=== PATIENT | male | born 1955 | race Caucasian/White ===

== ENCOUNTER → 2023-07-30 06:37 | Day surgery (SDC) | payer MEDICARE, OTHER, SELFPAY | LOC: GI 06:37 | PROVIDERS: ATTENDING PHYSICIAN Specialist | DX: Z12.11 Encounter for screening for malignant neoplasm of colon (principal); D12.2 Benign neoplasm of ascending colon; D12.3 Benign neoplasm of transverse colon; K57.30 Diverticulosis of large intestine without perforation or abscess without bleeding; K20.90 Esophagitis, unspecified without bleeding; K22.89 Other specified disease of esophagus; K31.7 Polyp of stomach and duodenum; K31.89 Other diseases of stomach and duodenum; R12 Heartburn; Z86.010 Personal history of colon polyps | CPT/HCPCS: 43251; 45385; 43239; 88305 ==

== ENCOUNTER 2023-10-16 06:13 | Day surgery (SDC) | payer MEDICARE, OTHER, SELFPAY ==
[2023-10-16 09:46] VITALS: BMI 25.1
[2023-10-16 09:47] VITALS: BP 140/85
[2023-10-16 11:50] VITALS: BP 128/93
[2023-10-16 12:05] VITALS: BP 132/77
[2023-10-16 12:20] VITALS: BP 134/83
== END 2023-10-16 12:30 | disposition home or self-care (01) ==
LOC: GI 06:13
PROVIDERS: ATTENDING PHYSICIAN Internal Medicine Gastroenterology
DX: D12.2 Benign neoplasm of ascending colon (principal); D12.3 Benign neoplasm of transverse colon; K64.0 First degree hemorrhoids
CPT/HCPCS: 45390; 45385; 88305

== ENCOUNTER 2024-02-20 10:31 | Emergency (ER) | payer MEDICARE, OTHER, SELFPAY ==
[2024-02-20 10:37] VITALS: BP 173/84
[2024-02-20 11:21] VITALS: BMI 26.0
[2024-02-20 11:27] VITALS: BP 163/73
[2024-02-20 11:59] LABS: % Basophils 0.7 % (0-2); % Eosinophils 3.5 % (0-6); % Immature Granulocytes 0.4 % (0-0.5); % Lymphocytes 21.4 % (20.5-51.1); % Monocytes 10.4 % (1.7-9.3); % Neutrophils 63.6 % (42.2-75.2); Absolute Basophils 0.1 10^3/uL (0-0.2); Absolute Eosinophils 0.3 10^3/uL (0-0.7); Absolute Lymphocytes 1.8 10^3/uL (1.2-3.4); Absolute Monocytes 0.9 10^3/uL (0.1-0.6); Absolute Neutrophils 5.3 10^3/uL (1.4-6.5); Hematocrit 37.7 % (39.0-52.0); Hemoglobin 12.9 g/dL (13.0-18.0); Mean Corp Hgb Conc. 34.2 g/dL (33.0-37.0); Mean Corpuscular Hgb 30.4 pg (27.0-31.0); Mean Corpuscular Volume 88.7 fL (80.0-94.0); Mean Platelet Volume 9.4 fL (7.4-10.4); Nucleated Red Blood Cells % 0 % (-); Platelet Count 345 10^3/uL (130-400); Red Blood Cell Count 4.25 10^6/uL (4.70-6.10); Red Cell Dist. Width 13.7 % (11.5-14.5); White Blood Cell Count 8.3 10^3/uL (4.8-10.8)
[2024-02-20 12:00] LABS: Urine Albumin Negative (Neg - Trace); Urine Bilirubin Negative (Negative); Urine Character Clear (Clear); Urine Color Yellow; Urine Glucose Negative (Negative); Urine Ketone Negative (Negative); Urine Leukocyte Negative (Negative); Urine Nitrite Negative (Negative); Urine Occult Blood Negative (Negative); Urine Urobilinogen Negative (Neg - 1+)
--- NOTE | 2024-02-20 12:05 | ED.GENMED ---
History of Present Illness
General
Chief Complaint: Rectal Bleeding
Source: patient
Exam Limitations: none
Time Seen by Provider: 02/20/24 10:43
Nursing documentation reviewed up to this point in time: agreed with
History of Present Illness
History of Present Illness:
68-year-old male past medical history of COPD CAD hypertension hyperlipidemia presenting to the emergency department today with concerns of rectal bleeding intermittently over the past 10 days tribes red blood but otherwise brown stool. Spoke with
his GI doctor that told him to go to the ER for further assessment. Also has some discomfort to his scrotum over the past 10 days as well. Denies any chest pain shortness of breath or changes in urination. Denies any abdominal pain
Past History
Past History
ED Past Medical History: CAD, GERD, HTN and Hypercholesterolemia
ED Past Surgical History: None
Social History
Tobacco: Former smoker
Alcohol: None
Drug: None
Living: with family
Employment: Employed
Review of Systems
Review of Systems
Allergies reviewed?: Yes
All Other Systems: ROS reviewed and negative except as documented in HPI and ROS
Phy Exam
Physical Exam
Physical Exam:
GENERAL: Alert , in no apparent distress
EYE: pupils equal and reactive
NECK: Supple, no significant adenopathy.
ENT: o/p clr, mmm.
CARDIAC: Regular rate and rhythm .
LUNGS: Clear breath sounds bilaterally, no acute respiratory distress, no wheezes/rales/rhonchi
Genital: Scrotum with mild vague tenderness no masses fluctuance induration redness or warmth
ABDOMEN: Rectal, multiple external hemorrhoids none that appear to have active bleeding. Stool is brown but guaiac positive otherwise abdomen soft, without focal tenderness, no r/g, no cvat
NEUROLOGICAL: Alert and oriented, no focal neuro deficits
SKIN: Warm and dry, skin intact.
MUSCULOSKELETAL: No edema, well perfused.
PSYCH: Normal and appropriate interaction.
Course
Orders/Labs/Results
Orders:
Orders
02/20/24 10:50
Scrotum US [US Scrotum] Urgent
Comment:
Reason For Exam: scrotal pain
02/20/24 11:28
Type+Screen Urgent
Complete Blood Count/With Diff Urgent
Comprehensive Metabolic Panel Urgent
Urinalysis Reflex To Culture Urgent
Date Specimen was Collected: 02/20/24
Time Specimen was Collected: :23
Abnormal Lab Results
02/20/24
11:28
RBC 4.25 L 10^6/uL
(4.70-6.10)
Hgb 12.9 L g/dL
(13.0-18.0)
Hct 37.7 L %
(39.0-52.0)
Absolute Monos (auto) 0.9 H 10^3/uL
(0.1-0.6)
Monocytes % 10.4 H %
(1.7-9.3)
Glucose 105 H mg/dl
(70-99)
02/20/24 11:28
02/20/24 11:28
Vital Signs
Initial and Last Documented VS:
Initial Vital Signs
Pulse Resp BP Pulse Ox
73 18 173/84 98
02/20/24 10:37 02/20/24 10:37 02/20/24 10:37 02/20/24 10:37
Last Documented Vital Signs
Pulse Resp BP Pulse Ox
71 18 163/73 97
02/20/24 11:45 02/20/24 12:10 02/20/24 11:27 02/20/24 11:45
MDM/Problems Addressed
MDM/Problems Addressed:
68-year-old male presenting to the emergency today with concerns of scrotal discomfort over the past 10 days as well as intermittent rectal bleeding with brown stool. Here patient does have external hemorrhoids but no obvious active bleeding.
Blood pressure elevated otherwise vital signs are normal. Labs obtained hemoglobin 12.9. Case discussed with GI that feels outpatient follow-up is appropriate in the case that symptoms seem to be most likely from hemorrhoids otherwise patient
appears well. Additionally scrotal ultrasound without emergent findings advised for urology follow-up as needed. Return precautions given.
*Critical Care Note
Total Time (30-74mins, 75-104mins- exclusive of procedures): Not Applicable
ED Attending Note
-
Portions of this chart may have been created with voice recognition software.� Occasional wrong word or��sound alike� substitutions may have occurred due to the inherent limitations of voice recognition software.
Discharge Plan
Departure
Patient Disposition: Home (Routine Discharge)
Date of Disposition: 02/20/24
Time of Disposition: 14:25
Patient with high blood pressure during this ER visit?: No
Condition: Good
Covid-19: Not Applicable
Discharge Problem:
Pain in scrotum, Acute GI bleeding
Instructions: Hemorrhoids (DC)
Prescriptions:
New
hydrocortisone acetate [Anusol-HC] 25 mg suppository
25 mg MS DAILY Qty: 12 0RF
No Action
aspirin 81 MG tablet,chewable
81 mg PO DAILY
sildenafil 100 mg Tablet
100 mg PO DAILY PRN (Reason: urinary symptoms/ED)
amlodipine 10 mg Tablet
10 mg PO DAILY
montelukast [Singulair] 10 mg Tablet
10 mg PO DAILY
zinc 50 mg Tablet
50 mg PO DAILY
Centrum Silver Tablet
1 tab PO DAILY
coenzyme Q10 [CoQ-10] 100 mg Capsule
200 mg PO DAILY
rosuvastatin 40 mg Tablet
40 mg PO DAILY
cholecalciferol (vitamin D3) [Vitamin D3] 25 mcg (1,000 unit) Tablet
25 mcg PO DAILY
budesonide-formoterol [Symbicort] 80-4.5 mcg/actuation Hfa Aerosol Inhaler
2 puff INHALATION BIDPRN PRN (Reason: sob)
ProAir RespiClick 90 mcg/actuation Aerosol Powdr Breath Activated
2 inh INHALATION Q4H PRN (Reason: sob)
cyanocobalamin (vitamin B-12) 1,000 mcg Tablet
1,000 mcg PO DAILY
omeprazole 20 mg capsule,delayed release(DR/EC)
20 mg PO DAILY
magnesium 250 mg Tablet
250 mg PO DAILY
fluticasone propionate 50 mcg/actuation spray,suspension
2 spray INTRANASAL BID
vitamin B complex [B Complex] Capsule
1 cap PO DAILY
ezetimibe 10 mg tablet
10 mg PO DAILY
Testosterone Support
1 tab PO DAILY
Referrals:
Reuben Cox MD [Active] - Follow up in 10 days
Grady Martínez MD [Family Provider] -
Vitaliy Dixon Jr., MD [Active] - Follow up in 10 days
Activity Restrictions/Additional Instructions:
You came to the emergency department today with concerns of GI bleeding as well as scrotal pain. He had a reassuring assessment. Please feel close with GI as well as urology. Return to the emergency department for any worsening, new or concerning
symptoms.
Interventions
Interventions:
*Risk Screen - Suicide Last Done: 02/20/24 10:39
*General Assessment Last Done: 02/20/24 10:39
*Neglect/Abuse Screening Last Done: 02/20/24 10:39
ED- Fall Risk Assessment Last Done: 02/20/24 11:39
*ED COVID-19 Vaccine History Last Done: 02/20/24 11:22
ZH-Cnzrwf-Yuowtxgdpm Assessment Last Done: 02/20/24 11:32
ED- Cardiac Assessment Last Done: 02/20/24 11:32
ED- Pulmonary Assessment Last Done: 02/20/24 11:32
Discharge Date and Time
Print Language: PARAGUAYAN
[2024-02-20 12:09] LABS: ALT (SGPT) 40 U/L (0-50); AST (SGOT) 36 U/L (17-59); Albumin 4.4 g/dl (3.5-5.0); Alkaline Phosphatase 74 U/L (38-126); Blood Urea Nitrogen 18 mg/dl (9-20); Calcium 9.4 mg/dl (8.4-10.2); Carbon Dioxide 24 mmol/L (22-30); Chloride 106 mmol/L (98-107); Estimated Creatinine Clearance 109 ml/min; Glucose 105 mg/dl (70-99); Potassium 4.4 mmol/L (3.5-5.1); Sodium 139 mmol/L (135-145); Total Bilirubin 0.4 mg/dl (0.2-1.3); Total Protein 7.3 g/dl (6.3-8.2); eGFR > 60.00
[2024-02-20 13:00] VITALS: BP 166/84
[2024-02-20 14:00] VITALS: BP 169/83
== END 2024-02-20 14:46 | disposition home or self-care (01) ==
LOC: EMR 10:31
PROVIDERS: Physician Assistant; EMERGENCY PHYSICIAN Student in an Organized Health Care Education/Training Program; FAMILY PHYSICIAN Internal Medicine Geriatric Medicine
DX: K92.2 Gastrointestinal hemorrhage, unspecified (principal); N50.82 Scrotal pain; K64.4 Residual hemorrhoidal skin tags; E78.5 Hyperlipidemia, unspecified; I10 Essential (primary) hypertension; I25.10 Atherosclerotic heart disease of native coronary artery without angina pectoris; J44.9 Chronic obstructive pulmonary disease, unspecified; K21.9 Gastro-esophageal reflux disease without esophagitis; Z87.891 Personal history of nicotine dependence
CPT/HCPCS: 99284; 76870; 80053; 81003; 85025; 86850; 86900; 86901; 93976

== ENCOUNTER → 2024-04-17 06:18 | Day surgery (SDC) | payer MEDICARE, OTHER, SELFPAY | LOC: GI 06:18 | PROVIDERS: ATTENDING PHYSICIAN Specialist | DX: Z12.11 Encounter for screening for malignant neoplasm of colon (principal); K63.5 Polyp of colon; K57.30 Diverticulosis of large intestine without perforation or abscess without bleeding; K64.8 Other hemorrhoids; F17.210 Nicotine dependence, cigarettes, uncomplicated; Z86.0101 Personal history of adenomatous and serrated colon polyps | CPT/HCPCS: 45385; 45380; 88305 ==

== ENCOUNTER → 2024-07-28 08:06 | Outpatient (REF) | payer MEDICARE, OTHER, SELFPAY | LOC: RCS 08:06 | PROVIDERS: ATTENDING PHYSICIAN Internal Medicine Cardiovascular Disease; FAMILY PHYSICIAN Internal Medicine Geriatric Medicine | DX: I35.8 Other nonrheumatic aortic valve disorders (principal) | CPT/HCPCS: 93306 ==

== ENCOUNTER 2025-04-20 06:33 | Day surgery (SDC) | payer MEDICARE, OTHER, SELFPAY | END 2025-04-20 10:01 | disposition home or self-care (01) | LOC: GI 06:33 | PROVIDERS: ATTENDING PHYSICIAN Specialist | DX: Z12.11 Encounter for screening for malignant neoplasm of colon (principal); K57.30 Diverticulosis of large intestine without perforation or abscess without bleeding; K63.5 Polyp of colon; Z86.0101 Personal history of adenomatous and serrated colon polyps | CPT/HCPCS: 45385; 88305 ==